=== PATIENT | male | born 1985 | race Caucasian/White ===

== ENCOUNTER 2021-12-29 12:21 | Emergency (ER) | payer MEDICAID ==
[2021-12-29] MEDS ORDERED: CLINDAMYCIN HC300 MG PO (12:55)
[2021-12-29] MEDS ORDERED: NAPROXEN500 MG PO (12:55)
== END 2021-12-29 13:02 | disposition home or self-care (01) ==
LOC: ER1 12:21
DX: K02.9 Dental caries, unspecified (principal); F17.210 Nicotine dependence, cigarettes, uncomplicated
CPT/HCPCS: 99282